=== PATIENT | female | born 1975 | race Caucasian/White ===

== ENCOUNTER 2016-06-14 18:36 | Emergency (ER) | payer OTHER ==
[~2016-06-14] VITALS: Ht 157.5 cm; Wt 113.4 kg
[~2016-06-14 18:36] MED LIST: HYDR-971 PO
--- NOTE | 2016-06-14 20:15 | PHYS DOC ---
Past Medical History Past Medical History: UTI, Other Additional Past Medical Histor: ULCER, SMALL BOWEL OBS Past Surgical History: Hysterectomy, Other Additional Past Surgical Histo: GASTRIC BYPASS, KNEE SURGERY Alcohol Use: None Drug Use: None Adult General Chief Complaint Chief Complaint: HEMORRHOIDS [facility] HPI Patient is a 40 year old female who presents with complaint of rectal pain. The patient states that she thinks she may have a thrombosed hemorrhoid. Patient states that this first started causing her trouble 5 days ago. Patient states that it has progressively caused her more pain. Patient currently rates her pain as 8 out of 10. Patient states that she has significant pain with sitting and with direct contact to the hemorrhoid. Patient denies any active bleeding. The patient came to the emergency department for evaluation as she is concerned she may need to have surgery on this hemorrhoid. The patient has been trying warm water baths to help with her symptoms. Review of Systems Review of Systems Constitutional: Denies fever or chills [] Eyes: Denies change in visual acuity, redness, or eye pain [] HENT: Denies nasal congestion or sore throat [] Respiratory: Denies cough or shortness of breath [] Cardiovascular: No additional information not addressed in HPI [] GI: Rectal pain, Denies abdominal pain, nausea, vomiting, bloody stools or diarrhea [] : Denies dysuria or hematuria [] Musculoskeletal: Denies back pain or joint pain [] Integument: Denies rash or skin lesions [] Neurologic: Denies headache, focal weakness or sensory changes [] Endocrine: Denies polyuria or polydipsia [] Allergies Allergies Allergies Coded Allergies Type Severity Reaction Last Updated Verified No Known Drug Allergies 07/18/15 No Physical Exam Physical Exam Constitutional: Alert, obese, afebrile, no acute distress. [] HENT: Normocephalic, atraumatic, bilateral external ears normal, oropharynx moist, no oral exudates, nose normal. [] Cardiovascular:Heart rate regular rhythm, no murmur [] Lungs & Thorax: Bilateral breath sounds clear to auscultation [] Abdomen: Bowel sounds normal, soft, no tenderness, no masses, no pulsatile masses. Rectal: 1 cm tender thrombosed external hemorrhoid located along left anterior distribution of the anus, no active bleeding, no fissures [] Skin: Warm, dry, no erythema, no rash. [] Back: No tenderness, no CVA tenderness. [] Extremities: No tenderness, no cyanosis, no clubbing, ROM intact, no edema. [] Neurologic: Alert and oriented X 3, normal motor function, normal sensory function, no focal deficits noted. [] Current Patient Data Vital Signs Vital Signs Date Time Temp Pulse Resp B/P Pulse Ox O2 Delivery O2 Flow Rate FiO2 06/14/16 20:49 72 16 129/78 100 Room Air 06/14/16 19:40 98.3 98.3 EKG EKG Not performed [] Radiology/Procedures Radiology/Procedures Not performed [] Course & Med Decision Making Course & Med Decision Making Pertinent Labs and Imaging studies reviewed. (See chart for details) Patient has a thrombosed hemorrhoid on exam, however the patient is presenting over 72 hours after onset of symptoms. This presents a high risk of bleeding for any incision done in the emergency department. At this time I recommended conservative treatment with use of hydrocortisone, sitz baths, witch iris, Naprosyn, Colace, and Tylenol for symptoms. Patient was referred to Dr. Borrego for outpatient general surgery follow-up in the next 2 days if symptoms are not improving. Advised return emergency department for any worsening symptoms. Patient voiced understanding and in agreement with treatment plan. Dragon Disclaimer Dragon Disclaimer This electronic medical record was generated, in whole or in part, using a voice recognition dictation system. Departure Departure Impression: Primary Impression: Hemorrhoid Disposition: 01 HOME, SELF-CARE Condition: GOOD Referrals: NO PCP (PCP) ALEX BORREGO MD Patient Instructions: Hemorrhoids Additional Instructions: Follow-up with Dr. Borrego in 3-5 days of symptoms are not improving. Continue to use sitz bath's, tuck's pads, hydrocortisone 1% cream, and naproxen to help with pain associated with your hemorrhoids. Because you have had this hemorrhoid for the past 5 days, there is no indication for immediate incision and drainage of the thrombus. It is recommended that you consult with the general surgeon before any decisions of surgical intervention should be made. Return to the emergency department for any worsening or severe symptoms. Scripts Docusate Sodium (Colace)100 Mg Capsule1 Cap PO BID #30 CAP Prov:PATRICE GAMBOA MD 06/14/16 Problem Qualifiers Primary Impression: Hemorrhoid Hemorrhoid type: unspecified Qualified Code: K64.9 - Unspecified hemorrhoids PATRICE GAMBOA MD Jun 14, 2016 20:15
[2016-06-14] MEDS ORDERED: DOCU-27 PO (20:31)
[2016-06-14 20:49] VITALS: BP 129/78
== END 2016-06-14 20:50 | disposition home or self-care (01) ==
LOC: ER 18:36
DX: K64.5 Perianal venous thrombosis (principal); Z90.710 Acquired absence of both cervix and uterus; Z87.440 Personal history of urinary (tract) infections; Z98.84 Bariatric surgery status
CPT/HCPCS: 99282; 99283

== ENCOUNTER 2016-08-08 09:32 | Emergency (ER) | payer OTHER ==
[~2016-08-08 09:32] MED LIST changes: +DOCU-27 PO
[2016-08-08 09:45] VITALS: BP 156/110
[2016-08-08] MEDS ORDERED: AMOX875T PO (10:11)
--- NOTE | 2016-08-08 10:11 | PHYS DOC ---
Past Medical History Past Medical History: UTI, Other Additional Past Medical Histor: ULCER, SMALL BOWEL OBS, HEMORRHOIDS Past Surgical History: Cholecystectomy, Hysterectomy, Tonsillectomy, Other Additional Past Surgical Histo: GASTRIC BYPASS, KNEE SURGERY Alcohol Use: None Drug Use: None Adult General Chief Complaint Chief Complaint: DENTAL PROBLEM HPI HPI Patient is a 40 year old female who presents with moderate left upper and lower gum dental pain that began on Monday which is 3 days ago. Patient states she was seen by her dentist and DIAGNOSED with a dental abscess and put on penicillin. Patient states she also has been taking hydrocodone and anti- inflammatories with no relief of her pain. Patient is requesting a different antibiotic and something for pain in the ED. Review of Systems Review of Systems Constitutional: Denies fever or chills [] Eyes: Denies change in visual acuity, redness, or eye pain [] HENT: Left sided dental pain Musculoskeletal: Denies back pain or joint pain [] Integument: Denies rash or skin lesions [] Neurologic: Denies headache, focal weakness or sensory changes [] Endocrine: Denies polyuria or polydipsia [] Current Medications Current Medications Current Medications Medications (Trade) Dose Ordered Sig/Lucy Start Time Stop Time Status Last Admin Dose Admin Morphine Sulfate 5 mg 1X ONCE 08/08/16 10:15 08/08/16 10:16 Allergies Allergies Allergies Coded Allergies Type Severity Reaction Last Updated Verified No Known Drug Allergies 07/18/15 No Physical Exam Physical Exam Constitutional: Well developed, well nourished, no acute distress, non-toxic appearance. [] HENT: Normocephalic, atraumatic, bilateral external ears normal, oropharynx moist, no oral exudates, nose normal. [] Approximately tooth #15 is missing. Tooth #17 and 16 are decayed. Lower teeth with scattered dental caries. No dental abscess noted. No gum redness or swelling noted. Skin: Warm, dry, no erythema, no rash. [] Back: No tenderness, no CVA tenderness. [] Extremities: No tenderness, no cyanosis, no clubbing, ROM intact, no edema. [] Neurologic: Alert and oriented X 3, normal motor function, normal sensory function, no focal deficits noted. [] Psychologic: Affect normal, judgement normal, mood normal. [] Current Patient Data Vital Signs Vital Signs Date Time Temp Pulse Resp B/P Pulse Ox O2 Delivery O2 Flow Rate FiO2 08/08/16 09:45 99.0 102 14 96 Room Air 99.0 EKG EKG [] Radiology/Procedures Radiology/Procedures [] Course & Med Decision Making Course & Med Decision Making Pertinent Labs and Imaging studies reviewed. (See chart for details) Patient has infected dental caries. She is currently on penicillin which she started on Monday she feels it's not working. Discharged with amoxicillin 875 mg. Instructed to continue taking hydrocodone as needed for pain and anti- inflammatories. Follow-up with her dentist as soon as she can. Dragon Disclaimer Dragon Disclaimer This electronic medical record was generated, in whole or in part, using a voice recognition dictation system. Departure Departure Impression: Primary Impression: Dentalgia Additional Impression: Infected dental caries Disposition: HOME, SELF-CARE Condition: STABLE Referrals: NO PCP (PCP) Follow-up with your dentist as soon as possible Patient Instructions: Dental Caries Additional Instructions: You were seen for dental infection. Take the prescribed antibiotics as ordered. Continue taking your pain medicine at home. Follow-up with your dentist as soon as possible. Scripts Amoxicillin 875 Mg Tablet1 Tab PO BID #20 TAB Prov:MOISE JAVIER APRN 08/08/16 Problem Qualifiers MOISE JAVIER APRN Aug 08, 2016 10:11
[2016-08-08] MEDS ORDERED: MORPHINE SULFATE 10 MG/ML VIAL. IM ONE (10:15)
== END 2016-08-08 10:34 | disposition home or self-care (01) ==
LOC: ER 09:32
DX: K02.9 Dental caries, unspecified (principal); K04.7 Periapical abscess without sinus; Z90.710 Acquired absence of both cervix and uterus; Z98.84 Bariatric surgery status; Z90.49 Acquired absence of other specified parts of digestive tract
CPT/HCPCS: 96372; 99283; J2270

== ENCOUNTER 2017-01-24 08:17 | Emergency (ER) | payer OTHER ==
[~2017-01-24] VITALS: Ht 157.5 cm; Wt 104.3 kg
[~2017-01-24 08:17] MED LIST changes: +AMOX875T PO; +DOCU-109 PO; -DOCU-27 PO
[2017-01-24 08:22] VITALS: BP 196/93
--- NOTE | 2017-01-24 08:40 | PHYS DOC ---
Past Medical History Past Medical History: UTI, Other Additional Past Medical Histor: ULCER, SMALL BOWEL OBS, HEMORRHOIDS Past Surgical History: Cholecystectomy, Hysterectomy, Tonsillectomy, Other Additional Past Surgical Histo: GASTRIC BYPASS, KNEE SURGERY Alcohol Use: None Drug Use: None Adult General Chief Complaint Chief Complaint: FOOT INJURY PAIN HPI HPI Patient is a 41 year old female presents to the emergency department with a history of tripping over the dog steps at the end of her bed this AM around 4: 30. Patient states she injured the second toe on the right foot. She states she is having increase pain with weight bearing. She does have tenderness noted along the seconds to with blood noted at the nail of the second toe. No swelling slight discoloration noted to the second toe. Patient with good sensation noted to the toes. Patient with full ROM to the toes. Patient states she has taken Ibuprofen 800 mg with relief as long as she does not place weight on the foot. Review of Systems Review of Systems Constitutional: Denies fever or chills [] Eyes: Denies change in visual acuity, redness, or eye pain [] HENT: Denies nasal congestion or sore throat [] Respiratory: Denies cough or shortness of breath [] Cardiovascular: No additional information not addressed in HPI [] GI: Denies abdominal pain, nausea, vomiting, bloody stools or diarrhea [] : Denies dysuria or hematuria [] Musculoskeletal: Denies back pain. Right foot pain Integument: Denies rash or skin lesions [] Neurologic: Denies headache, focal weakness or sensory changes [] Endocrine: Denies polyuria or polydipsia [] Current Medications Current Medications Current Medications Medications (Trade) Dose Ordered Sig/Lucy Start Time Stop Time Status Last Admin Dose Admin Acetaminophen/ Hydrocodone Bitart (Lortab 5/325) 2 tab 1X ONCE 01/24/17 09:30 01/24/17 09:31 DC 01/24/17 09:49 2 TAB Allergies Allergies Allergies Coded Allergies Type Severity Reaction Last Updated Verified No Known Drug Allergies 07/18/15 No Physical Exam Physical Exam Constitutional: Well developed, well nourished, no acute distress, non-toxic appearance. [] HENT: Normocephalic, atraumatic, bilateral external ears normal, oropharynx moist, no oral exudates, nose normal. [] Eyes: PERRLA, EOMI, conjunctiva normal, no discharge. [] Neck: Normal range of motion, no tenderness, supple, no stridor. [] Cardiovascular:Heart rate regular rhythm Lungs & Thorax: no respiratory distress noted Skin: Warm, dry, no erythema, no rash. [] Back: No tenderness Extremities: Right foot tenderness, with second toe appearing slight bruising, no cyanosis, no clubbing, ROM intact, no edema. Patient with good sensation noted, cap refill brisk < 2 seconds. Neurologic: Alert and oriented X 3, normal motor function, normal sensory function, no focal deficits noted. [] Psychologic: Affect normal, judgement normal, mood normal. [] Current Patient Data Vital Signs Vital Signs Date Time Temp Pulse Resp B/P (MAP) Pulse Ox O2 Delivery O2 Flow Rate FiO2 01/24/17 09:49 16 99 Room Air 01/24/17 08:22 98.6 92 196/93 (127) 98.6 EKG EKG [] Radiology/Procedures Radiology/Procedures [facility] [address] [place], [place] [id number] IMAGING REPORT Signed PATIENT: LITO IBARRA ACCOUNT: [id number] : 1975 LOCATION: ER AGE: 41 SEX: F EXAM STATUS: REG ER ORD. PHYSICIAN: LUTHER FORD APRN REASON: tripped over dog steps this AM PROCEDURE: FOOT RIGHT 3V Indication injury, pain. AP oblique and lateral views of the right foot were obtained. There is some soft tissue swelling. No bony abnormality is seen DICTATED and SIGNED BY: IVANA CHANDLER MD DATE: 01/24/17 0852 CC: LUTHER FORD APRN; NO PCP ~ [] Course & Med Decision Making Course & Med Decision Making Pertinent Labs and Imaging studies reviewed. (See chart for details) X-rays were negative for any bony abnormalities. Patient does have an area on her second toe that appears to show the toenail being split. This area was soaked in soapy water for approximately 20 minutes. The area will be Steri- Stripped together. Patient will be placed on antibiotics to help with potential infection. Tetanus immunization is up-to-date. Patient was provided with 2 hydrocodone's here in the emergency department for severe pain and discomfort. She'll be provided with a prescription for 10 hydrocodone's at home. Patient was instructed hydrocodone will cause drowsiness do not take any be alert and oriented. Recommended Sanford wrap and postop shoe and crutches due to increased pain and discomfort with ambulation. Recommend patient wear the Sanford wrap for the next week wear the postop shoe for the next 10 days. Recommended using the crutches for the next 3-5 days. Patient agrees with discharge instructions, treatment regimens and follow-up recommendations. She was provided with a orthopedic name and number to follow up with. Patient was also encouraged to use ibuprofen 800 mg every 8 hours to help with inflammation and pain as well. Ice packs and elevation. [] Dragon Disclaimer Dragon Disclaimer This electronic medical record was generated, in whole or in part, using a voice recognition dictation system. Departure Departure Impression: Primary Impression: Sprain of foot, right Additional Impression: Laceration of toe with damage to nail Disposition: 01 HOME, SELF-CARE Condition: STABLE Referrals: NO PCP (PCP) Patient Instructions: Foot Sprain-Brief, Laceration Care, Adult, [id number] Additional Instructions: Activity as tolerated. Ice packs on 20 minutes off 20 minutes several times a day elevation as much as possible. Wear the Sanford wrap for the next week. Wear the postop shoe for the next 10 days. Use the crutches for the next 3-5 days. Ibuprofen 800 mg every 8 hours with food stop taking few develop an upset stomach. [place] for severe pain and discomfort. This medication will cause drowsiness do not take any be alert and oriented. Follow-up with orthopedic in the next week. Return back to emergency prior signs symptoms become worse. Scripts Hydrocodone/Apap 5-325 (NORCO 5-325 TABLET) 1 Each Tablet 1 TAB PO PRN Q6HRS Y for PAIN, #10 TAB 0 Refills Prov: LUTHER FORD Joy [employer] 01/24/17 Problem Qualifiers Primary Impression: Sprain of foot, right Encounter type: initial encounter Qualified Codes: S93.601A - Unspecified sprain of right foot, initial encounter Additional Impression: Laceration of toe with damage to nail Encounter type: initial encounter Toe: lesser toe Foreign body presence: without foreign body Laterality: right Qualified Codes: S91.214A - Laceration without foreign body of right lesser toe(s) with damage to nail, initial encounter LUTHER FORD APRN Jan 24, 2017 08:40
--- NOTE | 2017-01-24 08:57 | RAD ---
Indication injury, pain. AP oblique and lateral views of the right foot were obtained. There is some soft tissue swelling. No bony abnormality is seen
[2017-01-24] MEDS ORDERED: HYDROcodone/APAP 5/325MG 1 TAB TABLET PO ONE (09:30)
[2017-01-24] MEDS ORDERED: HYDR-971 PO (10:20)
== END 2017-01-24 10:40 | disposition home or self-care (01) ==
LOC: ER 08:17
DX: S91.219A Laceration without foreign body of unspecified toe(s) with damage to nail, initial encounter (principal); S93.601A Unspecified sprain of right foot, initial encounter; W01.0XXA Fall on same level from slipping, tripping and stumbling without subsequent striking against object, initial encounter; Y93.89 Activity, other specified; Y99.8 Other external cause status; Y92.89 Other specified places as the place of occurrence of the external cause
CPT/HCPCS: 73630; 99284-25

== ENCOUNTER 2018-06-03 09:46 | Emergency (ER) | payer OTHER ==
[~2018-06-03] VITALS: Ht 157.5 cm; Wt 104.3 kg
[~2018-06-03 09:46] MED LIST changes: +HYDR-3164 PO; -HYDR-971 PO
[2018-06-03 09:50] VITALS: BP 196/93
[2018-06-03] MEDS ORDERED: HYDROcodone/APAP 5/325MG 1 TAB TABLET PO ONE (10:15)
[2018-06-03] MEDS ORDERED: LIDOCAINE WITH 8.4% SOD BICARB 3 ML DISP.SYRIN. INJ ONE (10:15)
--- NOTE | 2018-06-03 10:25 | RAD ---
3 view study of the third digit of the left hand Clinical indications: Laceration injury. FINDINGS: No acute fracture or dislocation or osteolytic process or radiopaque foreign body is evident. IMPRESSION: No acute fracture. Electronically signed by: Enzo Doyle MD (06/03/2018 10:20 AM) [facility]
--- NOTE | 2018-06-03 11:17 | PHYS DOC ---
Past Medical History Past Medical History: UTI, Other Additional Past Medical Histor: ULCER, SMALL BOWEL OBS, HEMORRHOIDS Past Surgical History: Cholecystectomy, Hysterectomy, Tonsillectomy, Other Additional Past Surgical Histo: GASTRIC BYPASS, KNEE SURGERY Alcohol Use: None Drug Use: Marijuana Adult General Chief Complaint Chief Complaint: LACERATION/AVULSION HPI HPI Patient is a 42 year old right-handed female who presents with left middle finger laceration, patient accidentally cut herself with a knife. Review of Systems Review of Systems Constitutional: Denies fever or chills [] Musculoskeletal: Denies back pain or joint pain [] Integument: Reports left middle finger laceration Neurologic: Denies headache, focal weakness or sensory changes [] All other systems were reviewed and found to be within normal limits, except as documented in this note. Current Medications Current Medications Current Medications Medications (Trade) Dose Ordered Sig/Lucy Start Time Stop Time Status Last Admin Dose Admin Acetaminophen/ Hydrocodone Bitart (Lortab 5/325) 1 tab 1X ONCE 06/03/18 10:15 06/03/18 10:16 DC 06/03/18 10:15 1 TAB Lidocaine/Sodium Bicarbonate (Buffered Lidocaine 1%) 3 ml 1X ONCE 06/03/18 10:15 06/03/18 10:16 DC 06/03/18 10:14 3 ML Allergies Allergies Allergies Coded Allergies Type Severity Reaction Last Updated Verified No Known Drug Allergies 07/18/15 No Physical Exam Physical Exam Constitutional: Well developed, well nourished, no acute distress, non-toxic appearance. [] Skin: Warm, dry, left lateral middle finger with a laceration approximately 2 cm long at the distal end. Full range of motion to the left middle finger. Adequate medial, and ulnar sensation to the middle finger. +2 left radial pulse. Cap refill <2 seconds to the left middle finger. Back: No tenderness, no CVA tenderness. [] Extremities: No tenderness, no cyanosis, no clubbing, ROM intact, no edema. [] Neurologic: Alert and oriented X 3, normal motor function, normal sensory function, no focal deficits noted. [] Psychologic: Affect normal, judgement normal, mood normal. [] Current Patient Data Vital Signs Vital Signs Date Time Temp Pulse Resp B/P (MAP) Pulse Ox O2 Delivery O2 Flow Rate FiO2 06/03/18 10:15 24 06/03/18 09:50 98.2 88 196/93 (127) 95 Room Air 98.2 EKG EKG [] Radiology/Procedures Radiology/Procedures []PROCEDURE: FINGER(S) LEFT 3 view study of the third digit of the left hand Clinical indications: Laceration injury. FINDINGS: No acute fracture or dislocation or osteolytic process or radiopaque foreign body is evident. IMPRESSION: No acute fracture. Electronically signed by: Kendra Doyle MD (06/03/2018 10:20 AM) [id number] DICTATED and SIGNED BY: KENDRA DOYLE MD DATE: 06/03/18 1019 Laceration/Wound Repair Wound Location: Left middle finger Wound's Depth, Shape: Horizontal Wound Length (cm): Approximately 2 cm long Wound was explored for foreign objects, none was found Irrigated w/ Saline (ccs): 150 Betadine Prep?: Y Anesthesia: 1% buffered lidocaine Volume Anesthetic (ccs): Approximately 2 mL Wound Repaired With: Ethilon Suture Size/Type: 5.0/interrupted sutures Number of Sutures: 5 Progress : Wound was covered with nonstick dressing Course & Med Decision Making Course & Med Decision Making Pertinent Labs and Imaging studies reviewed. (See chart for details) This is a 42-year-old patient presented to the ED left middle finger laceration , left hand x-rays are negative for any acute findings, tetanus is up-to-date. Laceration was repaired baby as noted in procedures. Wound care instructions and return precautions provided. Staff Physician Addendum: I was working in the ER during the course of this patient's visit. I was available for consultation as needed, but I was not directly involved in the care of this patient. Dragon Disclaimer Dragon Disclaimer This electronic medical record was generated, in whole or in part, using a voice recognition dictation system. Departure Departure Impression: Primary Impression: Laceration of middle finger Disposition: 01 HOME, SELF-CARE Condition: STABLE Referrals: NO PCP (PCP) follow up with the ED or your doctor in 7-10 days for suture removal Patient Instructions: Laceration Care, Adult, [id number] Additional Instructions: You have left middle finger laceration, keep the area clean and dry. You can shower and wash your hands. Do not soak the finger. Apply Neosporin to the laceration site twice a day for 7 days. Monitor the area for any signs of infection including but not limited to increased redness to the area, warmth to the area, yellow/odorous drainage from the area and return to the ED if they occur. Follow-up with the ED or primary care doctor in 7-10 days for suture removal. Problem Qualifiers Primary Impression: Laceration of middle finger Encounter type: initial encounter Damage to nail status: without damage Foreign body presence: without foreign body Laterality: left Qualified Codes : S61.213A - Laceration without foreign body of left middle finger without damage to nail, initial encounter MOISE JAVIER APRN Jun 03, 2018 11:17 HOLA WELLINGTON MD Jun 03, 2018 11:43
== END 2018-06-03 11:28 | disposition home or self-care (01) ==
LOC: ER 09:46
DX: S61.213A Laceration without foreign body of left middle finger without damage to nail, initial encounter (principal); Z90.49 Acquired absence of other specified parts of digestive tract; Z90.710 Acquired absence of both cervix and uterus; Z90.89 Acquired absence of other organs; W26.0XXA Contact with knife, initial encounter; Y93.89 Activity, other specified; Y92.89 Other specified places as the place of occurrence of the external cause; Y99.8 Other external cause status
CPT/HCPCS: 12001; 73140; 99283

== ENCOUNTER 2018-06-14 12:01 | Emergency (ER) | payer OTHER ==
[~2018-06-14] VITALS: Ht 157.5 cm; Wt 104.3 kg
[2018-06-14 12:22] VITALS: BP 166/107
--- NOTE | 2018-06-14 12:28 | PHYS DOC ---
Past Medical History Past Medical History: UTI, Other Additional Past Medical Histor: ULCER, SMALL BOWEL OBS, HEMORRHOIDS Past Surgical History: Cholecystectomy, Hysterectomy, Tonsillectomy, Other Additional Past Surgical Histo: GASTRIC BYPASS, KNEE SURGERY Alcohol Use: None Drug Use: Marijuana Adult General Chief Complaint Chief Complaint: SUTURE/STAPLE REMOVAL HPI HPI Patient is a 42 year old female who presents for suture removal from the left middle finger. Sutures were placed by me 11 days ago. Patient denies any issues with the wound healing. Review of Systems Review of Systems Constitutional: Denies fever or chills [] Musculoskeletal: Denies back pain or joint pain [] Integument: Visit for suture removal left middle finger Neurologic: Denies headache, focal weakness or sensory changes [] All other systems were reviewed and found to be within normal limits, except as documented in this note. Allergies Allergies Allergies Coded Allergies Type Severity Reaction Last Updated Verified No Known Drug Allergies 07/18/15 No Physical Exam Physical Exam Constitutional: Well developed, well nourished, no acute distress, non-toxic appearance. [] Skin: Warm, dry, left middle finger distal and radial aspect with a well approximated laceration site with 4 interrupted sutures. No signs of infection. Back: No tenderness, no CVA tenderness. [] Extremities: No tenderness, no cyanosis, no clubbing, ROM intact, no edema. [] Neurologic: Alert and oriented X 3, normal motor function, normal sensory function, no focal deficits noted. [] Psychologic: Affect normal, judgement normal, mood normal. [] Current Patient Data Vital Signs Vital Signs Date Time Temp Pulse Resp B/P (MAP) Pulse Ox O2 Delivery O2 Flow Rate FiO2 06/14/18 12:22 98.4 88 18 166/107 (126) 99 Room Air 98.4 EKG EKG [] Radiology/Procedures Radiology/Procedures [] Course & Med Decision Making Course & Med Decision Making Pertinent Labs and Imaging studies reviewed. (See chart for details) This is a 42-year-old female patient presenting to the ED today for suture removal. Patient has had the sutures for 11 days. The laceration site is well approximated with no signs of infection. Sutures were removed by me return precautions provided. Dragon Disclaimer Dragon Disclaimer This electronic medical record was generated, in whole or in part, using a voice recognition dictation system. Departure Departure Impression: Primary Impression: Visit for suture removal Disposition: HOME, SELF-CARE Condition: STABLE Referrals: NO PCP (PCP) Follow-up with your doctor in 1-2 weeks as needed Patient Instructions: Suture Removal-Brief Additional Instructions: We removed stitches from your finger. Keep the area clean and dry. Continue applying Neosporin to the laceration site for 1 more week. Follow-up with your doctor as needed. Come back to the ED at any point you have concerning symptoms. MOISE JAVIER APRN Jun 14, 2018 12:28
== END 2018-06-14 12:36 | disposition home or self-care (01) ==
LOC: ER 12:01
DX: S61.213D Laceration without foreign body of left middle finger without damage to nail, subsequent encounter (principal); X58.XXXD Exposure to other specified factors, subsequent encounter
CPT/HCPCS: 99281